=== PATIENT | male | born 1970 ===

== ENCOUNTER 2022-12-16 10:31 | Emergency (ER) | payer OTHER, SELFPAY ==
[2022-12-16 10:49] VITALS: BP 126/81; PULSE 75; RESP 18; TEMP 37.2; O2SAT 98; BMI 26.0
--- NOTE | 2022-12-16 11:10 | ED_ITS ---
HPI - Male Genitourinary General Chief complaint: Urogenital-Male Stated complaint: prostate issues Time Seen by Provider: 12/16/22 11:00 Source: patient Mode of arrival: ambulatory Limitations: no limitations History of Present Illness HPI Narrative: Patient is a 52-year-old male with history of BPH presenting to the emergency department with report urinary frequency, dysuria, perineal discomfort for the past several days. Reports pain is worse with standing and walking and certain positions with sitting. Patient states that he does not have unprotected sexual intercourse, states he has sex only with women. Denies recent fevers. Denies abdominal pain, nausea, vomiting, diarrhea, constipation. Denies any chest pain or shortness of breath. Denies any penile discharge. Denies any testicular swelling. MD Complaint: dysuria Onset (ago): day(s) Duration: constant Severity: severe Quality: aching Relieving factors: rest Exacerbating factors: movement Context: other (BPH) Associated symptoms: Reports dysuria and other (Urinary frequency) Related Data Previous Rx's Medication Instructions Recorded levofloxacin 500 mg tablet 500 mg PO DAILY 4 weeks #28 tabs 12/16/22 Allergies Allergy/AdvReac Type Severity Reaction Status Date / Time No Known Allergies Allergy Verified 12/16/22 10:48 Review of Systems Review of Systems: As per HPI. Yes all other systems are reviewed and are negative PMFSH Social History Social History Advance Directives: No Advance Directives Information Provided: Yes Physical Exam Vital Signs: Vital Signs: Last Vital Signs Temp 98.9 F 12/16/22 10:49 Pulse 75 12/16/22 10:49 Resp 18 12/16/22 10:49 BP 126/81 12/16/22 10:49 Pulse Ox 98 12/16/22 10:49 O2 Del Method Room Air 12/16/22 10:49 BMI result Body Mass Index 26.0 Vital signs have been reviewed and appear to be correct. Blood pressure normal. Heart rate normal. Respiratory rate normal. Temperature normal. Oxygen saturation normal. Const: General: no acute distress, alert and awake Orientation/consciousness: patient oriented x3 HEENT: Head: Yes normocephalic and Yes atraumatic Mouth: oropharynx normal and moist mucous membranes Throat: Yes uvula midline Eyes: Pupils: Equal, round and reactive pupils present EOM: EOMs intact bilaterally Neck: Neck: Yes normal visual inspection, Yes full ROM, Yes no lymphadenopathy, Yes no meningeal signs and Yes supple Resp: Effort & Inspection: normal respiratory effort Auscultation: clear to auscultation bilaterally Cardio: Rate: regular rate Rhythm: regular rhythm Heart sounds: S1 normal heart sound present and S2 normal heart sound present Peripheral pulses: Peripheral pulses 2+ throughout GI: Other: Rectal exam chaperoned by MARTIN Godoy. Inspection: Yes normal to inspection and No distended Palpation (GI): Soft to palpation, nontender, no guarding, hepatosplenomegaly present and No Rebound tenderness present Auscultation: normoactive bowel sounds Rectal Exam - Male: Yes visual inspection normal and Yes prostate abnormal (tenderness to palpation) : General: Yes no CVA tenderness Back/Spine/Pelvis: Back: no CVA tenderness Skin: General skin exam: elasticity normal and turgor normal Rashes: no rashes Neuro: General: patient oriented x3, gait normal and no meningeal signs Cranial nerves: Yes Equal, round and reactive pupils present Motor exam (neuro): 5/5 motor strength present throughout and Normal motor muscle tone present throughout Sensory Exam: Normal double simultaneous stimulation for sensation Medical Decision Making Medical Decision Making MDM Narrative: Patient is a 52-year-old male with history of BPH presenting to the emergency department with report urinary frequency, dysuria, perineal discomfort for the past several days. On exam patient is awake, A+Ox3, VS WNL, afebrile, normal neurological exam without focal deficits, abdomen soft and nontender, no CVA tenderness, prostate tenderness noted on rectal exam. Given reported symptoms and physical exam findings, initial differential includes prostatitis, UTI, STI. UA noted for no evidence of infection. Will discharge patient home on levofloxacin daily for [address] NG with delay in resulting, discussed with patient that he will be contacted with any positive results. Instructed to contact PCP for follow-up as well as urologist for follow-up. Return precautions discussed at bedside. All results discussed and all ques tions answered. Patient verbalized understanding of and agreement with plan. Differential Diagnosis Differential Diagnoses: The differential diagnosis associated with the presentation includes As per MDM. Lab Data [facility] Lab Attestation statement: I reviewed the patient's lab results. As per MDM. Labs: Lab Results 12/16/22 Range/Units 11:08 Urine Color Yellow Urine Appearance Clear Urine pH 7.0 (5.0-9.0) Ur Specific [place] 1.020 (1.005-1.025) Urine Protein Negative (Neg-Trace) mg/dL Urine Glucose (UA) Negative (Negative) mg/dL Urine Ketones Negative (Negative) mg/dL Urine Blood Negative (Negative) Urine Nitrite Negative (Negative) Ur Leukocyte Esterase Negative (Negative) External Record Review External record reviewed: Inpatient record, Office record and Outpatient record Prescription Management I considered prescription management with: Antibiotic Discharge Plan Discharge Clinical Impression: Prostatitis Patient Disposition: Home, Self-Care Instructions: Prostatitis (ED) Additional Instructions: It is important that you complete the full course of antibiotics as prescribed. Please schedule a follow up appointment with your primary care provider and your urologist this week. Return to the emergency department if you develop worsening pain, difficulty or inability to urinate, fever 100.4F or greater, abdominal pain, or any other concerning symptoms. Prescriptions: New levofloxacin 500 mg tablet 500 mg PO DAILY 28 Days Qty: 28 0RF Stand Alone Forms: Work/School Release
[2022-12-16 11:15] LABS: Appearance Urine Clear; Color Urine Yellow; Glucose Urine UA Negative (Negative); Leukocyte Esterase Urine Negative (Negative); Nitrite Urine Negative (Negative); Urine Blood Negative (Negative); Urine Ketones Negative (Negative); Urine Protein Negative (Neg-Trace)
[2022-12-16 14:29] LABS: CT PCR NOT DETECTED (Not Detect.); NG PCR NOT DETECTED (Not Detect.)
== END 2022-12-16 14:02 | disposition home or self-care (01) ==
PROVIDERS: Registered Nurse Emergency; Emergency Provider Emergency Medicine; PCP Internal Medicine
DX: N41.9 Inflammatory disease of prostate, unspecified (principal); R35.0 Frequency of micturition; R30.0 Dysuria; Z79.899 Other long term (current) drug therapy
CPT/HCPCS: 0353U; 81003; 99283

== ENCOUNTER 2023-02-25 09:08 | Emergency (ER) | payer OTHER, SELFPAY ==
--- NOTE | ~2023-02-25 | CT_ITS ---
EXAMINATION: CT ABDOMEN AND PELVIS WITH CONTRAST CLINICAL INFORMATION: Rectal pain. COMPARISON: None available. TECHNIQUE: Multidetector volumetric images were obtained from the superior aspect of the liver through the pubic symphysis following administration 85 mL of Omnipaque 350 intravenous contrast. Sagittal and coronal reformatted images were obtained on the technologist's workstation. Oral contrast: No This CT examination was performed using dose optimization techniques as appropriate, variously including the following: *Automated exposure control *Adjustment of mA and/or kV according to patient size (this includes techniques or standardized protocols for targeted exams where dose is matched to indication/reason for exam; i.e. extremities or head) *Use of iterative reconstruction technique DLP: 601 mGy-cm FINDINGS: LUNG BASES: The visualized lung bases are unremarkable. LIVER, GALLBLADDER, AND BILIARY TREE: The liver is normal in size, shape, and attenuation. No focal hepatic lesion or biliary ductal dilatation is present. The gallbladder is unremarkable with no evidence of radiopaque gallstones, gallbladder wall thickening, or obvious pericholecystic inflammatory changes. PANCREAS: Unremarkable. SPLEEN: Unremarkable. ADRENAL GLANDS: Unremarkable. KIDNEYS AND URETERS: The kidneys are normal in size, shape, and attenuation. No hydronephrosis or perinephric stranding. BLADDER: Unremarkable. GASTROINTESTINAL TRACT: There are fluid-filled loops of large bowel. There is distention of proximal to mid small bowel loops with wall thickening in the central abdomen. No small bowel obstruction. ABDOMINAL WALL: No significant hernia is appreciated. LYMPH NODES: No bulky abdominal or pelvic lymphadenopathy. VASCULAR: Normal caliber abdominal aorta. PELVIC VISCERA: Enlarged prostate gland. OSSEOUS STRUCTURES: No destructive bone lesion. CT/CT abdomen pelvis w IV con IMPRESSION: Findings possibly representing enterocolitis. Advise clinical correlation. Infectious and inflammatory etiologies should be considered.
[2023-02-25 09:30] VITALS: BP 132/90; PULSE 82; RESP 20; TEMP 36.4; O2SAT 98; BMI 26.0
[2023-02-25 10:17] LABS: Appearance Urine Clear; Color Urine Yellow; Glucose Urine UA Negative (Negative); Leukocyte Esterase Urine Negative (Negative); Nitrite Urine Negative (Negative); PH 5.5 (5.0-9.0); UMIC TRIGGER UACC YES; Urine Blood Trace (Negative); Urine Ketones 15 mg/dL (Negative); Urine Protein Negative (Neg-Trace)
[2023-02-25 10:19] LABS: Bacteria Urine None Seen (None Seen); Hyaline Casts Urine 0-2 /LPF (0-2); RBC Urine 0-2 /HPF (0-2); Squamous Epithelial Cell Urine 0-2 /HPF (0-2); WBC Urine 0-5 /HPF (0-5)
[2023-02-25 12:03] LABS: CT PCR NOT DETECTED (Not Detect.); NG PCR NOT DETECTED (Not Detect.)
[2023-02-25 12:15] LABS: MANUAL DIFF FLAG NO
[2023-02-25 12:17] LABS: Basophils Absolute Auto 0.1 X10*3/uL (0.0-0.2); Basophils Percent Auto 0.6 % (0-2); Eosinophils Percent Auto 0.3 % (0-4); Hematocrit 48.4 % (42.0-52.0); Hemoglobin 16.7 g/dl (14.0-18.0); Imm Gran Abs Auto 0.05 X10*3/uL (0.00-0.03); Imm Gran Pct Auto 0.4 % (0.0-0.4); Lymphocytes Absolute Auto 1.9 X10*3/uL (1.2-4.9); Lymphocytes Percent Auto 15.1 % (20-40); Mean Corpuscular HGB Conc 34.5 g/dl (31.0-36.0); Mean Corpuscular Hemoglobin 29.9 pg (27.0-33.0); Mean Corpuscular Volume 86.6 fL (80.0-98.0); Monocytes Absolute Auto 0.8 X10*3/uL (0.1-1.2); Monocytes Percent Auto 6.3 % (2-11); Neutrophils Absolute Auto 9.9 x10*3/uL (2.0-8.3); Neutrophils Percent Auto 77.3 % (45-73); Platelet Count 288 X10*3/uL (160-400); Red Blood Count 5.59 X10*6/uL (4.60-5.80); Red Cell Distribution Width 12.5 % (11.0-16.0); White Blood Count 12.8 X10*3/uL (4.8-10.8)
--- NOTE | 2023-02-25 12:23 | PC.NURSE ---
20g iv inserted L upper outer arm. labs drawn as documented.
--- NOTE | 2023-02-25 13:22 | ED.MALEGU ---
HPI - Male Genitourinary General Chief complaint: Urogenital-Male Stated complaint: Unable to urinate Time Seen by Provider: 02/25/23 09:39 Source: patient and family ( significant other) Mode of arrival: ambulatory History of Present Illness HPI Narrative: This is a 52-year-old male who presents with ongoing prostate pain for months, patient states that he has difficulty urinating but denies any associated fevers or chills and he was seen on Saturday by Dr Arroyo who prescribed him antibiotics but he has not had any relief from his discomfort. Patient denies any scrotal pain. Related Data Previous Rx's Medication Instructions Recorded levofloxacin 500 mg tablet 500 mg PO DAILY 4 weeks #28 tabs 12/16/22 Allergies Allergy/AdvReac Type Severity Reaction Status Date / Time No Known Allergies Allergy Verified 02/25/23 09:33 Review of Systems Review of Systems: Pertinent positives and negatives as stated in HPI [facility] Past Medical History Source: nursing notes reviewed Social History Social History Advance Directives: No Physical Exam Vital Signs: Vital Signs: Last Vital Signs Temp 97.6 F 02/25/23 09:30 Pulse 82 02/25/23 09:30 Resp 20 02/25/23 09:30 BP 132/90 H 02/25/23 09:30 Pulse Ox 98 02/25/23 09:30 O2 Del Method Room Air 02/25/23 09:30 BMI result Body Mass Index 26.0 VITAL SIGNS: Reviewed. GENERAL: Well developed, well nourished, in no acute distress. HEAD: Normocephalic/atraumatic EYES: PERRLA, EOMI EARS: Ext canals without abnormality NOSE: Nares patent bilateral OROPHARYNX: no oral lesions noted, posterior pharynx clear NECK: Supple, no adenopathy LUNGS: Normal breath sounds. No adventitious sounds or accessory muscle use. SpO2<98> CARDIOVASCULAR: Regular rate and rhythm without noted murmurs ABDOMEN: Soft, non-tender, non-distended with bowel sounds. : [research support specialist-ClaraLee], Uncircumcised penis without any lesions or abnormalities noted, scrotum is without erythema or induration and no tenderness on palpation of the testicles oral epididymis. tenderness to palpation at the perineal area without erythema or induration noted AMIE: patient experience extreme pain and there is significant fullness noted to the 06:00 o'clock of the anus suspect significant prostate enlargement. MUSCULOSKELETAL: No tenderness, deformities, or effusions noted on gross inspection. EXTREMITIES: No cyanosis, clubbing or edema. SKIN: Inspection of the skin reveals no rashes NEUROLOGIC: Alert and oriented x 4. Strength and sensation to light touch were grossly intact x 4. Medications Administered Discontinued Medications Generic Name Dose Route Start Last Admin Trade Name Freq PRN Reason Stop Dose Admin Iohexol 85 ml 02/25/23 14:03 02/25/23 14:04 Iohexol 350 Mg/Ml 100 Ml Infus..Btl IV 02/25/23 14:04 85 ml ONCE ONE Administration Ketorolac Tromethamine 15 mg 02/25/23 13:27 02/25/23 15:12 Ketorolac Tromethamine 30 Mg/Ml Vial IVPUSH 02/25/23 13:28 15 mg ONCE ONE Administration Medical Decision Making Medical Decision Making MDM Narrative: 52-year-old male with history and clinical presentation and on review of prior document Chasity raymond and review of pharmacy documents it appears that patient was treated with 4 weeks of levofloxacin on 12/16 from this institution for similar complaints. On 02/04 patient received a prescription of Flomax from Dr. Marion and then on 02/19 patient was started on 30 [address] of [address] Dr[address] Arroyo. 1329: I suspect infection w/DDX: BPH, prostatitis, rectal mass, no concern for testicular torsion or epididymitis or scrotal cellulitis at this time, also no clinical suspicion for perineal cellulitis. lactic acid/ blood culture/antibiotics ordered. Chemistry indices grossly within normal limits without SAFIA and no evidence of electrolyte or liver enzyme abnormalities. Urinalysis is negative for UTI or hematuria and STI screening negative for chlamydia/gonorrhea. 1530: CT scan demonstrates enterocolitis with multiple fluid filled small bowel loops. 1547: I discussed with inpatient hospitalist who accepts admission Differential Diagnosis Differential Diagnoses: The differential diagnosis associated with the presentation includes Please see the discussion above Admission/Observation Consideration of admission/observation: Escalation of care including admission/observation considered please see the discussion above Consult Healthcare Provider Management of the patient was discussed with: Hospitalist please see the discussion above Lab Data [facility] Lab Attestation statement: I reviewed the patient's lab results. please see the discussion above 02/25/23 12:11 02/25/23 13:10 Labs: Lab Results 02/25/23 02/25/23 02/25/23 Range/Units 10:10 12:11 13:10 WBC 12.8 H (4.8-10.8) X10*3/uL RBC 5.59 (4.60-5.80) X10*6/uL Hgb 16.7 (14.0-18.0) g/dl Hct 48.4 (42.0-52.0) % MCV 86.6 (80.0-98.0) fL MCH 29.9 (27.0-33.0) pg MCHC 34.5 (31.0-36.0) g/dl RDW 12.5 (11.0-16.0) % Plt Count 288 (160-400) X10*3/uL MPV 11.0 (9.4-12.4) fL Immature Gran % (Auto) 0.4 (0.0-0.4) % Neut % (Auto) 77.3 H (45-73) % Lymph % (Auto) 15.1 L (20-40) % [place] % (Auto) 6.3 (2-11) % Eos % (Auto) 0.3 (0-4) % Baso % (Auto) 0.6 (0-2) % Lymph # (Auto) 1.9 (1.2-4.9) X10*3/uL [place] # (Auto) 0.8 (0.1-1.2) X10*3/uL Eos # (Auto) 0.0 (0.0-0.4) X10*3/uL Baso # (Auto) 0.1 (0.0-0.2) X10*3/uL Abs Immat Gran (auto) 0.05 H (0.00-0.03) X10*3/uL Absolute Neuts (auto) 9.9 H (2.0-8.3) x10*3/uL Absolute Nucleated RBC 0.000 (0.0-0.012) X10*3/uL Nucleated RBC % (auto) 0.0 (0.0-0.2) /100WBC Sodium 137 (135-145) mmol/L Potassium 4.3 (3.3-5.1) mmol/L Chloride 104 (96-108) mmol/L Carbon Dioxide 23 (22-29) mmol/L Anion Gap 14 (12-20) BUN 13 (9-16) mg/dL Creatinine 1.38 (0.5-1.4) mg/dL Estim Creat Clear Calc 57.1 Estimated GFR 54 Random Glucose 78 (60-115) mg/dL Lactic Acid (0.5-2.0) mmol/L Calcium 9.9 (8.4-10.2) mg/dL Total Bilirubin 1.0 (0.0-1.0) mg/dL AST 34 (5-37) U/L ALT 25 (0-40) U/L Alkaline Phosphatase 85 (39-117) U/L Total Protein 7.9 (6.5-8.0) g/dL Albumin 4.6 (3.5-5.0) g/dL Urine Color Yellow Urine Appearance Clear Urine pH 5.5 (5.0-9.0) Ur Specific [place] 1.020 (1.005-1.025) Urine Protein Negative (Neg-Trace) mg/dL Urine Glucose (UA) Negative (Negative) mg/dL Urine Ketones 15 (Negative) mg/dL Urine Blood Trace H (Negative) Urine Nitrite Negative (Negative) Ur Leukocyte Esterase Negative (Negative) Urine RBC 0-2 (0-2) /HPF Urine WBC 0-5 (0-5) /HPF Ur Squamous Epith Cells 0-2 (0-2) /HPF Urine Bacteria None Seen (None Seen) Hyaline Casts 0-2 (0-2) /LPF Chlam trachomat DNA PCR NOT DETECTED (Not Detect.) N.gonorrhoeae DNA (PCR) NOT DETECTED (Not Detect.) 02/25/23 Range/Units 13:47 WBC (4.8-10.8) X10*3/uL RBC (4.60-5.80) X10*6/uL Hgb (14.0-18.0) g/dl Hct (42.0-52.0) % MCV (80.0-98.0) fL MCH (27.0-33.0) pg MCHC (31.0-36.0) g/dl RDW (11.0-16.0) % Plt Count (160-400) X10*3/uL MPV (9.4-12.4) fL Immature Gran % (Auto) (0.0-0.4) % Neut % (Auto) (45-73) % Lymph % (Auto) (20-40) % [place] % (Auto) (2-11) % Eos % (Auto) (0-4) % Baso % (Auto) (0-2) % Lymph # (Auto) (1.2-4.9) X10*3/uL [place] # (Auto) (0.1-1.2) X10*3/uL Eos # (Auto) (0.0-0.4) X10*3/uL Baso # (Auto) (0.0-0.2) X10*3/uL Abs Immat Gran (auto) (0.00-0.03) X10*3/uL Absolute Neuts (auto) (2.0-8.3) x10*3/uL Absolute Nucleated RBC (0.0-0.012) X10*3/uL Nucleated RBC % (auto) (0.0-0.2) /100WBC Sodium (135-145) mmol/L Potassium (3.3-5.1) mmol/L Chloride (96-108) mmol/L Carbon Dioxide (22-29) mmol/L Anion Gap (12-20) BUN (9-16) mg/dL Creatinine (0.5-1.4) mg/dL Estim Creat Clear Calc Estimated GFR Random Glucose (60-115) mg/dL Lactic Acid 1.2 (0.5-2.0) mmol/L Calcium (8.4-10.2) mg/dL Total Bilirubin (0.0-1.0) mg/dL AST (5-37) U/L ALT (0-40) U/L Alkaline Phosphatase (39-117) U/L Total Protein (6.5-8.0) g/dL Albumin (3.5-5.0) g/dL Urine Color Urine Appearance Urine pH (5.0-9.0) Ur Specific [place] (1.005-1.025) Urine Protein (Neg-Trace) mg/dL Urine Glucose (UA) (Negative) mg/dL Urine Ketones (Negative) mg/dL Urine Blood (Negative) Urine Nitrite (Negative) Ur Leukocyte Esterase (Negative) Urine RBC (0-2) /HPF Urine WBC (0-5) /HPF Ur Squamous Epith Cells (0-2) /HPF Urine Bacteria (None Seen) Hyaline Casts (0-2) /LPF Chlam trachomat DNA PCR (Not Detect.) N.gonorrhoeae DNA (PCR) (Not Detect.) Radiology Impression Discussion of test interpretation with radiology: I have reviewed the radiologist's reading. Radiologist Impression: please see the discussion above Discharge Plan Discharge Clinical Impression: Enterocolitis Patient Disposition: Admitted As Inpatient Prescriptions: No Action levofloxacin 500 mg tablet 500 mg PO DAILY 28 Days Qty: 28 0RF
[2023-02-25 13:32] LABS: Anion Gap 14 (12-20)
[2023-02-25 13:36] LABS: Alanine Aminotransferase 25 U/L (0-40); Albumin Level 4.6 g/dL (3.5-5.0); Alkaline Phosphatase 85 U/L (39-117); Aspartate Amino Transferase 34 U/L (5-37); Blood Urea Nitrogen 13 mg/dL (9-16); Calcium 9.9 mg/dL (8.4-10.2); Carbon Dioxide 23 mmol/L (22-29); Chloride 104 mmol/L (96-108); Creatinine Clr Calc Pharmacy 57.1; Estimated Glomerular Filt Rate 54; Glucose Random 78 mg/dL (60-115); Potassium 4.3 mmol/L (3.3-5.1); Sodium 137 mmol/L (135-145); Total Protein 7.9 g/dL (6.5-8.0)
[2023-02-25 14:02] LABS: Lactic Acid 1.2 mmol/L (0.5-2.0)
[2023-02-25] MEDS: iohexoL 350 MG/ML 100 ML INFUS..BTL 85 ML IV (14:04)
[2023-02-25] MEDS: Ketorolac Tromethamine 30 MG/ML VIAL 15 MG IVPUSH (15:12)
--- NOTE | 2023-02-25 16:12 | PHA.MEDREC ---
Pharmacy Consult ? Medication Reconciliation Pharmacy has reviewed the medication reconciliation completed by nursing. Gerri Jackson, JagdishD
--- NOTE | 2023-02-25 16:13 | PHA.MEDREC ---
Pharmacy Consult ? Medication Reconciliation Pharmacy has completed the medication reconciliation. Patient unsure of name of medicaitons. Patient confirmed medicaiton based on claim history. Gerri Jackson, JagdishD
[2023-02-25] MEDS: metroNIDAZOLE/NS 500 MG/100 ML PIGGYBACK 100 MG IV (16:58)
[2023-02-25] MEDS: cefTRIAXone sodium 1 GM in 0.9 % Sodium Chloride 50 ML IV (16:58)
[2023-02-25 17:03] VITALS: BP 140/94; PULSE 81; RESP 18; O2SAT 98
[2023-02-25] MEDS: 0.9 % Sodium Chloride 1,000 ML 999 ML IV (17:03)
--- NOTE | 2023-02-25 17:31 | PC.NURSE ---
pt pending admission. iv antibiotics and fluids given as documented. pt resting quietly, no apparent distress, denies pain. vss.
== END 2023-02-25 18:16 | disposition home or self-care (01) ==
PROVIDERS: Emergency Provider Student in an Organized Health Care Education/Training Program
DX: K52.9 Noninfective gastroenteritis and colitis, unspecified (principal); R33.9 Retention of urine, unspecified; R10.13 Epigastric pain; Z79.899 Other long term (current) drug therapy
CPT/HCPCS: 0353U; 36415; 51798; 74177; 80053; 81001; 83605; 85025; 87040; 96365; 96375; 99284; J0696; J1885; Q9967